=== PATIENT | female | born 1975 | race Caucasian/White ===

== ENCOUNTER 2022-08-28 10:52 | Day surgery (SDC) | payer OTHER, MEDICAID ==
[2022-08-28] MEDS: Lactated Ringers 1,000 ML IV SCH (11:28)
[2022-08-28] MEDS ORDERED: propofoL 50 ML ONE (12:10)
[2022-08-28] MEDS ORDERED: Lidocaine 2% 5 ML SDV ONE (12:14)
[2022-08-28] MEDS ORDERED: fentaNYL 100 MCG/2 ML SDV ONE (12:14)
[2022-08-28 14:24] VITALS: BP 111/58; PULSE 68
== END 2022-08-28 14:04 | disposition home or self-care (01) ==
LOC: MW.SDS 10:52
PROVIDERS: ATTEND Surgery
DX: K63.89 Other specified diseases of intestine (principal); K29.70 Gastritis, unspecified, without bleeding; K31.89 Other diseases of stomach and duodenum; K21.9 Gastro-esophageal reflux disease without esophagitis; G43.909 Migraine, unspecified, not intractable, without status migrainosus; Z98.890 Other specified postprocedural states; Z87.891 Personal history of nicotine dependence; Z79.899 Other long term (current) drug therapy
CPT/HCPCS: 43239; 45380; 81025; J2704; J3010; J7120; 00813

== ENCOUNTER 2023-02-02 07:40 | Emergency (ER) | payer OTHER, MEDICAID ==
[2023-02-02] MEDS ORDERED: Prochlorperazine 10 MG/2 ML SDV IVPUSH ONE (07:52)
[2023-02-02] MEDS ORDERED: Ketorolac 30 MG/ML SDV IVPUSH ONE (07:52)
[2023-02-02] MEDS ORDERED: Dexamethasone 10 MG/ML SDV IV ONE (07:52)
[2023-02-02] MEDS ORDERED: diphenhydrAMINE 50 MG/ML SDV IVPUSH ONE (07:52)
[2023-02-02] MEDS ORDERED: Acetaminophen 325 MG Tab PO ONE (07:52)
[2023-02-02] MEDS ORDERED: Lactated Ringers 1,000 ML IV ONE (07:52)
[2023-02-02] MEDS ORDERED: Bupivacaine 0.25% 10 ML SDV INJECT ONE (09:05)
[2023-02-02] MEDS ORDERED: Promethazine 25 MG/ML SDV IM ONE (09:19)
[2023-02-02] MEDS ORDERED: HYDROmorphone 1 MG/ML Syringe IVPUSH ONE (10:13)
[2023-02-02] MEDS ORDERED: Magnesium Sulfate/Water 2 GM in Premix Bag 1 BAG IV ONE (10:13)
[2023-02-02 13:37] VITALS: BP 107/65; PULSE 92
== END 2023-02-02 13:36 | disposition home or self-care (01) ==
LOC: MW.ED 07:40
DX: R51.9 Headache, unspecified (principal)
CPT/HCPCS: 93005; 96361; 96365; 96366; 96372; 96375; 99284; A9270; J0780; J1100; J1170; J1200; J1885; J2550; J3475; J3490; J7120